=== PATIENT | female | born 1980 | race African-American/Black ===

== ENCOUNTER 2020-11-20 18:46 | Emergency (ER) | payer OTHER, MEDICARE, MEDICAID, SELFPAY ==
[2020-11-20 18:55] VITALS: BP 178/86; PULSE 90; RESP 20; TEMP 36.8; O2SAT 100
--- NOTE | 2020-11-20 19:00 | ED.SKABFB ---
HPI - Skin/Abscess/Foreign Bdy General Chief complaint: Skin/Abscess/Foreign Body Stated complaint: Sore on Chest Source: patient Mode of arrival: ambulatory Limitations: no limitations History of Present Illness HPI narrative: Patient is a 40-year-old female who presents with a wound to left breast. Patient reports possible spider bite approximately 4 weeks ago, she reports initially having an abscess. She was seen and treated at [facility] approximately 2 weeks ago and started on Keflex. Patient reports little improvement. Patient reports tenderness with palpation, small amount of drainage. She denies taking [id number] medications for pain at this time. Patient has a history of rheumatoid arthritis, gastric bypass. MD complaint: lesion Related Data Home Medications Medication Instructions Recorded Confirmed albuterol sulfate 2 puff INHALATION QID PRN 11/20/20 11/20/20 citalopram 20 mg PO DAILY 11/20/20 11/20/20 etanercept [Enbrel SureClick] 50 mg SUBCUT WEEKLY 11/20/20 11/20/20 gabapentin 800 mg PO QID 11/20/20 11/20/20 hydroxyzine HCl 50 mg PO QID PRN 11/20/20 11/20/20 lamotrigine 75 mg PO BID 11/20/20 11/20/20 lansoprazole 15 mg PO DAILY 11/20/20 11/20/20 prednisone 50 mg PO HS 11/20/20 11/20/20 sucralfate 1 g PO QID 11/20/20 11/20/20 Allergies Allergy/AdvReac Type Severity Reaction Status Date / Time aspirin AdvReac Intermediate Abdominal Verified 11/20/20 19:22 Pain ropinirole [From Requip] AdvReac Intermediate Itching Verified 11/20/20 19:23 Review of Systems Review of Systems: Narrative: CONSTITUTIONAL: Denies fever, chills, or sweats. EYES: Denies visual changes, redness, or discharge. ENT: Denies rhinorrhea, congestion, sore throat, or otalgia. CARDIOVASCULAR: Denies chest pain, palpitations, or edema. RESPIRATORY: Denies cough or dyspnea. GASTROINTESTINAL: Denies abdominal pain, nausea, vomiting, or diarrhea. GENITOURINARY: Denies dysuria or hematuria. SKIN: Lesion to left breast MUSCULOSKELETAL: Denies back pain, joint pain, or myalgia. NEUROLOGIC: Denies headache, numbness, dizziness, or weakness. PSYCHIATRIC: Denies anxiety or depression. [facility] Past Medical History Medical History Anxiety Carpal tunnel syndrome Depression Fibromyalgia Restless leg syndrome Rheumatoid arthritis Surgical History Surgical History Gastric bypass status for obesity Family History Family History (Updated 11/20/20 @ 19:24 by MARKUS Monaco) Other Heart disease Social History Social History Smoking status: Never smoker Alcohol intake: current Alcohol use details: Occasional Substance use: never Living arrangements: with family Comments At the time of signature, I have reviewed and agree with nursing past medical, surgical, social, and family history unless otherwise noted. Please see nursing chart for further information. There is no relevant family history pertinent to the presenting complaint. Exam Narrative: Exam Narrative: GENERAL: Well-appearing, well-nourished, and in no acute distress. HEAD: Normocephalic, atraumatic. EYES: No redness or drainage. Conjunctiva are normal. ENT: Mucous membranes pink and moist. CHEST: No respiratory distress. HEART: Regular rate and rhythm. EXTREMITIES: Normal range of motion. No edema. SKIN: Approximate 3 x 4 cm ulceration to left breast, wound edges pink NEURO: No focal deficits. Alert and oriented x3. Gait steady. PSYCH: Normal affect. No signs of depression or anxiety. MDM - Skin/Abscess/Foreign Bdy MDM Narrative Medical decision making narrative: Discussed with patient following up with [facility] or general surgery for further evaluation of wound on left breast. Patient started on doxycycline at this time. Referrals given. Patient understands the import
== END 2020-11-20 19:35 | disposition home or self-care (01) ==
PROVIDERS: Emergency Provider Nurse Practitioner
DX: N61.1 Abscess of the breast and nipple (principal); N61.0 Mastitis without abscess; M79.7 Fibromyalgia; M06.9 Rheumatoid arthritis, unspecified; G25.81 Restless legs syndrome; F32.9 Major depressive disorder, single episode, unspecified; F41.9 Anxiety disorder, unspecified
CPT/HCPCS: 99213; G0463

== ENCOUNTER 2021-02-15 13:16 | Emergency (ER) | payer OTHER, MEDICARE, MEDICAID, SELFPAY ==
--- NOTE | 2021-02-15 13:20 | ED.GENADULT ---
HPI - General Adult General Stated complaint: ra symptoms Time Seen by Provider: 02/15/21 13:20 Source: patient and RN notes reviewed History of Present Illness HPI narrative: Patient is a 40-year-old female who presents the urgent care with complaints of all over body aches due to rheumatoid arthritis. Patient states that this flareup started approximately 1 week ago and she was in the ER last week. Patient states at that time she was not given high enough dose of steroids and it did nothing. Patient was noted to be on 20 mg of prednisone daily, for 12 days. 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 It has been noted that patient was on 50 mg of prednisone in the past. Currently reporting of pain in the left shoulder, right knee, bilateral hands with swelling. Patient is very adamant about pain medications. No other acute complaints. Patient is limping, due to the pain. No acute distress noted. Patient aware of the plan of care. Some parts of this dictation were generated by voice recognition software and may contain typographical and/or grammatical inaccuracies. Related Data Home Medications Medication Instructions Recorded Confirmed albuterol sulfate 2 puff INHALATION QID PRN 11/20/20 02/15/21 citalopram 20 mg PO DAILY 11/20/20 02/15/21 etanercept [Enbrel SureClick] 50 mg SUBCUT WEEKLY 11/20/20 02/15/21 gabapentin 800 mg PO QID 11/20/20 02/15/21 hydroxyzine HCl 50 mg PO QID PRN 11/20/20 02/15/21 lansoprazole 15 mg PO DAILY 11/20/20 02/15/21 sucralfate 1 g PO QID 11/20/20 02/15/21 diclofenac sodium See Rx Instructions .ROUTE 02/15/21 02/15/21 .COMPLEX PRN lamotrigine 25 mg PO BID 02/15/21 02/15/21 tizanidine 4 mg PO TID 02/15/21 02/15/21 trazodone 50 mg PO DAILY 02/15/21 02/15/21 Allergies Allergy/AdvReac Type Severity Reaction Status Date / Time aspirin AdvReac Intermediate Abdominal Verified 02/15/21 13:27 Pain ropinirole [From Requip] AdvReac Intermediate Itching Verified 02/15/21 13:27 Review of Systems Review of Systems: Narrative: CONSTITUTIONAL: Denies fever, chills, or sweats. EYES: Denies visual changes, redness, or discharge. ENT: Denies rhinorrhea, congestion, sore throat, or otalgia. CARDIOVASCULAR: Denies chest pain, palpitations, or edema. RESPIRATORY: Denies cough or dyspnea. GASTROINTESTINAL: Denies abdominal pain, nausea, vomiting, or diarrhea. GENITOURINARY: Denies dysuria or hematuria. SKIN: Denies rash or itching. MUSCULOSKELETAL: Reports of allover joint pain from rheumatoid arthritis NEUROLOGIC: Denies headache, numbness, or weakness. All other systems reviewed are negative, except as documented in HPI. [facility] Past Medical History Medical History Anxiety Carpal tunnel syndrome Depression Fibromyalgia Restless leg syndrome Rheumatoid arthritis Surgical History Surgical History Gastric bypass status for obesity Family History Family History (Updated 11/20/20 @ 19:24 by MARKUS Monaco) Other Heart disease Social History Social History Smoking status: Never smoker Alcohol intake: current Substance use: never Comments At the time of my signature, I reviewed and agree with the nursing past medical, surgical, social, and family history. There is no relevant family history pertinent to the patient complaint. Exam Narrative: Exam Narrative: GENERAL: This is a well-nourished, well-developed patient, in no apparent distress. HEAD: normocephalic, atraumatic. EYES: PERRL. Sclera clear/white. Vision is grossly intact. EARS: External ears normal NOSE: External nose normal with no obvious nasal discharge, nares without redness, no rhinorrhea. THROAT: Mucous membranes moist NECK: Neck supple CARDIOVASCULAR: Regular rate SKIN: warm, intact with no suspicious lesions or rash,
[2021-02-15 13:25] VITALS: BP 136/80; PULSE 80; RESP 20; TEMP 36.4; O2SAT 100
[2021-02-15 13:35] VITALS: BP 136/80; PULSE 80; RESP 20; TEMP 36.4; O2SAT 100
[2021-02-15] MEDS: predniSONE 20 MG TABLET 60 MG PO (13:49)
== END 2021-02-15 13:50 | disposition home or self-care (01) ==
PROVIDERS: Emergency Provider Nurse Practitioner Family
DX: M79.7 Fibromyalgia (principal); M06.9 Rheumatoid arthritis, unspecified; F41.9 Anxiety disorder, unspecified; F32.9 Major depressive disorder, single episode, unspecified; G25.81 Restless legs syndrome
CPT/HCPCS: 99213; G0463; J7512

== ENCOUNTER 2021-11-10 15:41 | Emergency (ER) | payer MEDICARE, MEDICAID, SELFPAY ==
[2021-11-10 15:48] VITALS: BP 141/80; PULSE 106; RESP 20; TEMP 36.4; O2SAT 97
--- NOTE | 2021-11-10 15:55 | ED.LOWEXIN ---
HPI - Extremity Injury (Lower) General Chief Complaint: Extremity Injury, Lower Stated Complaint: Left Knee Pain Time Seen by Provider: 11/10/21 16:00 Source: patient and RN notes reviewed Mode of arrival: ambulatory Limitations: no limitations History of Present Illness HPI Narrative: 41-year-old female presents with concern for left knee pain. She reports knee pain persist despite home pain medications. She reports history of fibromyalgia and rheumatoid arthritis. She reports no injury or trauma. Reports she could not get a hold of her primary doctor. She denies redness, warmth. Denies decrease strength or sensation. MD complaint: other (Knee pain) Related Data Home Medications Medication Instructions Recorded Confirmed albuterol sulfate 2 puff INHALATION QID PRN 11/20/20 11/10/21 citalopram 20 mg PO DAILY 11/20/20 11/10/21 etanercept [Enbrel SureClick] 50 mg SUBCUT WEEKLY 11/20/20 11/10/21 lansoprazole 15 mg PO DAILY 11/20/20 11/10/21 lamotrigine 25 mg PO BID 02/15/21 11/10/21 tizanidine 4 mg PO TID 02/15/21 11/10/21 trazodone 50 mg PO DAILY 02/15/21 11/10/21 amitriptyline 50 mg DAILY 11/10/21 11/10/21 Allergies Allergy/AdvReac Type Severity Reaction Status Date / Time aspirin AdvReac Intermediate Abdominal Verified 11/10/21 15:56 Pain ropinirole [From Requip] AdvReac Intermediate Itching Verified 11/10/21 15:56 NSAIDS (Non-Steroidal AdvReac Ulcers Verified 11/10/21 15:56 Anti-Inflamma Review of Systems Review of Systems: CONSTITUTIONAL: Denies malaise, chills, sweats, or fever. SKIN: Denies rash or itching, open skin, laceration, abrasion, redness, warmth, swelling. MUSCULOSKELETAL: Reports left knee pain NEUROLOGIC: Denies numbness, weakness All systems reviewed & are unremarkable except as noted in HPI and below PMFSH Past Medical History Medical History Anxiety Carpal tunnel syndrome Depression Fibromyalgia Restless leg syndrome Rheumatoid arthritis Surgical History Surgical History Gastric bypass status for obesity Family History Family History (Updated 11/20/20 @ 19:24 by Nickie Linares, MARKUS) Other Heart disease Social History Social History Smoking status: Never smoker Alcohol intake: current Alcohol use details: Occasional Substance use: never Comments At time of signature, agree with nursing past medical, surgical, social and family history. There is no relevant family history pertinent to the presenting complaint Exam Narrative: GENERAL: Well-appearing, well-nourished, and in no acute distress. HEAD: Normocephalic, atraumatic. EYES: PERRLA, conjunctivae clear NECK: Supple. CHEST: Speaks in full sentences. No respiratory distress. HEART: Regular rate and rhythm. Normal and equal peripheral pulses. EXTREMITIES: Left knee has normal strength and sensation, normal range of motion. No edema or ecchymosis. 5/5 strength with knee flexion and extension. Normal sensation with sensitivity to light touch and pain. Anterior tenderness. No open wounds, no skin tenting, no devitalized tissue or atrophy, no trophic changes, no obvious deformity, alignment normal, nearby joints and structures intact. Distal pulses palpable and equal bilaterally, skin warm, dry, pink. Capillary refill less than 3 seconds. SKIN: Warm, dry, no rash. NEURO: Alert and oriented x3. PSYCH: Normal mood and affect Course Course Emergency Course: Discussed with patient limited treatment options based on current medications and very recent prednisone use. Discussed possible one-time ketorolac injection vs history of gastric bypass. Discussed benefits vs risks as well as concomitant use of misoprostol for the next 5 days. Patient is agreable to treatment plan. Patient is aware of diagnosis, understands and agrees to treatment plan.
[2021-11-10] MEDS: KETOROLAC (*BKC) 60 MG/2 ML VIAL IM (16:14)
== END 2021-11-10 16:46 | disposition home or self-care (01) ==
PROVIDERS: Emergency Provider Nurse Practitioner
DX: M25.562 Pain in left knee (principal); M79.7 Fibromyalgia; G25.81 Restless legs syndrome; M06.9 Rheumatoid arthritis, unspecified; Z98.84 Bariatric surgery status; E66.9 Obesity, unspecified; Z68.41 Body mass index [BMI] 40.0-44.9, adult; F41.9 Anxiety disorder, unspecified; F32.A Depression, unspecified
CPT/HCPCS: 96372; 99213; G0463; J1885